=== PATIENT | female | born 1960 | race Two or more races ===

== ENCOUNTER 2017-02-12 11:03 | Emergency (ER) | payer OTHER ==
[2017-02-12 11:32] LABS: URINE BILIRUBIN NEGATIVE (NEG); URINE BLOOD MODERATE (NEG); URINE GLUCOSE (UA) NEGATIVE (NEG); URINE KETONE SMALL (NEG); URINE LEUKOCYTE ESTERASE NEGATIVE (NEG); URINE NITRITE NEGATIVE (NEG); URINE PROTEIN MODERATE (NEG)
[2017-02-12 11:33] LABS: URINE APPEARANCE CLEAR; URINE COLOR YELLOW
[2017-02-12 11:38] LABS: BASO % 0.1 % (0-2); EOS % 0.1 % (0-7); HCT-HEMATOCRIT 43.2 % (34.0-49.0); IMMATURE GRANULOCYTES ABSOLUTE 0.04 tho/cmm (0-0.03); IMMATURE GRANULOCYTES PERCENT 0.3 % (0-0.3); LYMPH % 4.8 % (20-45); LYMPH ABSOLUTE COUNT 0.7 tho/cmm (0.8-4.5); MCH (MEAN CORPUSCULAR HGB) 31.3 pg (28.0-32.0); MCHC MEAN CORPUSCULAR HGB CONC 34.7 % (32.0-36.0); MEAN PLATELET VOLUME 10.9 cmc (9.4-12.4); MONO % 2.1 % (0-12); MONOCYTE ABSOLUTE COUNT 0.3 tho/cmm (0.0-1.2); NEUTROPHIL ABSOLUTE COUNT 13.1 tho/cmm (1.6-8.0); NEUTROPHIL-AUTOMATED 13.1 tho/cmm (1.6-8.0); NEUTROPHILS % 92.6 % (40-80); PLATELET COUNT 279 tho/cmm (150-450); RED CELL DISTRIBUTION WIDTH 12.4 % (12.4-16.4)
[2017-02-12 11:39] LABS: URINE MUCUS 1+; URINE WBC RARE /[HPF] (0-5)
[2017-02-12] MEDS ORDERED: COZAAR100 M1 PO (11:49)
[2017-02-12 11:52] LABS: ALKALINE PHOSPHATASE 93 U/L (33-138); ALT/SGPT 34 U/L (12-78); BILIRUBIN,TOTAL 0.9 mg/dl (0-1.5); BLOOD UREA NITROGEN 21 mg/dl (6-24); C-REACTIVE PROTEIN 1.1 mg/dl (0-0.9); CALCIUM 8.6 mg/dl (8.5-10.5); CARBON DIOXIDE-VENOUS 25 mmol/L (22-32); CHLORIDE 109 mmol/l (96-110); GLUCOSE 133 mg/dL (70-110); LIPASE 115 U/L (73-393); SODIUM 142 mmol/L (135-145); eGFR VALUE FOR BLACK 64 mL/Min
[2017-02-12 12:01] LABS: ANION GAP 12 mmol/L (0-20); AST/SGOT 42 U/L (10-40)
[2017-02-12 12:02] LABS: POTASSIUM 4.3 mmol/L (3.7-5.1)
[2017-02-12 12:54] LABS: WHITE BLOOD COUNT 14.2 tho/cmm (4.0-10.0)
[2017-02-12] MEDS ORDERED: NORCO 5-325 TA1 EACH PO (14:12)
[2017-02-12] MEDS ORDERED: COMPAZINE10 MG PO (14:12)
== END 2017-02-12 14:46 ==
LOC: EDMED 11:03
PROVIDERS: Emergency Medicine
DX: R11.10 Vomiting, unspecified (principal); R19.7 Diarrhea, unspecified; R10.11 Right upper quadrant pain; R10.13 Epigastric pain; I10 Essential (primary) hypertension; Z98.890 Other specified postprocedural states; Z79.899 Other long term (current) drug therapy
CPT/HCPCS: J2270; J2405; J7030; Q9967